=== PATIENT | female | born 1970 | race Caucasian/White ===

== ENCOUNTER 2020-12-23 14:18 | Inpatient (IN) | payer OTHER ==
[~2020-12-23] VITALS: Ht 165.1 cm; Wt 120.2 kg
[2020-12-23 15:20] LABS: HEMATOCRIT 38.4 % (31.2-41.9); MEAN CORPUSCULAR HEMOGLOBIN 27.8 uug (24.7-32.8); MEAN CORPUSCULAR VOLUME 85.8 fL (75.5-95.3); PLATELET COUNT (AUTO) 343 K/uL (179-408)
[2020-12-23 15:28] LABS: CREATININE 1.3 mg/dL (0.6-1.3); POTASSIUM 4.6 mmol/L (3.5-5.1)
[2020-12-23] MEDS ORDERED: HYDROMORPHONE 1 MG/1 ML DISP.SYRIN IM ONE ×2 (15:30→20:00)
[2020-12-23] MEDS ORDERED: ONDANSETRON ODT 4 MG TAB.RAPDIS ONE (15:44)
[2020-12-23] MEDS ORDERED: ONDANSETRON ODT 4 MG TAB.RAPDIS SL STA (16:10)
[2020-12-23] MEDS ORDERED: HYDROMORPHONE 1 MG/1 ML DISP.SYRIN ONE ×2 (16:11→20:19)
[2020-12-23] MEDS ORDERED: PRED20TA PO (16:34)
[2020-12-23] MEDS ORDERED: ALBU6.7H9 INH (16:35)
[2020-12-23] MEDS ORDERED: predniSONE 20 MG TABLET PO ONE (16:45)
[2020-12-23] MEDS ORDERED: predniSONE 50 MG TABLET ONE (16:48)
[2020-12-23] MEDS ORDERED: predniSONE 10 MG TABLET ONE (16:48)
[2020-12-23] MEDS ORDERED: IPRATROPIUM BROMIDE 0.5 MG/2.5 ML NEBU NEB ONE (17:00)
[2020-12-23] MEDS ORDERED: ALBUTEROL SULFATE 2.5 MG/3 ML NEBU NEB ONE (17:00)
[2020-12-23] MEDS ORDERED: ALBUTEROL SULFATE 2.5 MG/3 ML NEBU ONE (17:12)
[2020-12-23] MEDS ORDERED: IPRATROPIUM BROMIDE 0.5 MG/2.5 ML NEBU ONE (17:12)
[2020-12-23 17:30] LABS: ABG BASE EXCESS -2.8 mmol/L; ABG HCO3 23.3 mmol/L; ABG PCO2 45.6 mmHg (35.0-45.0); ABG PH 7.326 (7.350-7.450); ABG PO2 165.7 mmHg (75.0-100.0); ABG SITE RIGHT RADIAL; ABG TOTAL HEMOGLOBIN 12.8 G/dL (12.0-16.0); COHb 1.2 % (0.5-1.5); O2Hb 97.6 % (94.0-97.0)
[2020-12-23] MEDS ORDERED: Z GUARD REMEDY PASTE 57 GM TUBE TOP PRN (18:30)
[2020-12-23] MEDS ORDERED: ALBUTEROL SULFATE 2.5 MG/ 0.5 ML NEBU NEB PRN (18:30)
[2020-12-23] MEDS ORDERED: LINEZOLID IV 600 MG in PREMIXED 1 EACH IV SCH (18:30)
[2020-12-23] MEDS ORDERED: ONDANSETRON 4 MG/2 ML VIAL IV PRN (18:30)
[2020-12-23] MEDS ORDERED: MAGNESIUM HYDROXIDE 30 ML LIQUID UDC PO PRN (18:30)
--- NOTE | 2020-12-23 19:00 | NUR ---
Assumed care of patient from day shift nurse Bjorn. Patient came at the ER for wound check on right ankle area, cellulitis and SOB. Patient with Hx of Asthma. Patient pending admission to the unit. Addendum: 12/23/20 at 2020 by TATIANA NOTES DONE BY LIA TROTTER
[2020-12-23] MEDS ORDERED: MAGNESIUM SULFATE/D5W 200 ML ONE (19:34)
[2020-12-23] MEDS: MAGNESIUM SULFATE/D5W 100 ML IV SCH ×2 (19:34→21:10)
--- NOTE | 2020-12-23 20:00 | NUR ---
patient still complaining of pain on left ankle LE. Informed Dr. Cuellar.
[2020-12-23] MEDS ORDERED: HYDROMORPHONE 1 MG/1 ML DISP.SYRIN IV ONE (20:15)
--- NOTE | 2020-12-23 21:01 | NUR ---
2ND BAG OF MAGNESIUM GIVEN.
--- NOTE | 2020-12-23 21:14 | NUR ---
DR. CIFUENTES INTO VISIT.
--- NOTE | 2020-12-23 23:15 | NUR ---
Pt. admitted to Telemetry unit, room 305, under care of Dr. Justin. Belongs List completed
[2020-12-24 00:11] VITALS: BP 141/63
[2020-12-24] MEDS: HYDROCODONE/APAP 5-325MG TABLET PO PRN ×4 (00:45→18:43)
[2020-12-24] MEDS: methylPREDNISolone SOD SUCC 40 MG/ML VIAL IV SCH ×3 (00:59→12:56)
--- NOTE | 2020-12-24 01:56 | NUR ---
zyvox not given, unavailable from pharmacy;norco 5/325 given i tab prn for right lower extremity pain
--- NOTE | 2020-12-24 03:58 | NUR ---
slept at long intervals,need attended to, o2 at 2l via nasal cannula for sob ,
[2020-12-24 04:05] VITALS: BP 140/76
[2020-12-24 06:42] LABS: HEMATOCRIT 39.4 % (31.2-41.9); MEAN CORPUSCULAR HEMOGLOBIN 28.4 uug (24.7-32.8); MEAN CORPUSCULAR VOLUME 87.4 fL (75.5-95.3); PLATELET COUNT (AUTO) 290 K/uL (179-408)
--- NOTE | 2020-12-24 06:48 | NUR ---
resting in bed, afebrile,no sob noted at this time. endorsed to am shift.
[2020-12-24 06:58] LABS: CREATININE 1.4 mg/dL (0.6-1.3); MAGNESIUM 3.1 mg/dL (1.8-2.4); PHOSPHOROUS 4.7 mg/dL (2.5-4.9); POTASSIUM 5.7 mmol/L (3.5-5.1)
--- NOTE | 2020-12-24 08:00 | NUR ---
AWAKE ALERT AND ORIENTED X3 C/O ON AND OFF RIGHT LEG PAIN CONTINUE WITH PAIN MANAGEMENT. RA O2 100%. DENIES CHEST PAIN OR SOB. SR ON MONITOR
[2020-12-24] MEDS: LINEZOLID IV 600 MG in PREMIXED 1 EACH IV SCH ×2 (09:04→20:02)
--- NOTE | 2020-12-24 11:29 | NUR ---
WOUND CARE CONSULT: PT PRESENTS WITH DRY CRUSTED WOUND TO RT ANKLE, PRESENT ON ADMISSION. PT STATES THAT AREA IS VERY TENDER AND DRAINS SOMETIMES. DPM CONSULT CALLED TO DR HAMPAPUR. BLANCO IN AGREEMENT WITH PLAN OF CARE.
[2020-12-24 12:00] VITALS: BP 140/70
[2020-12-24] MEDS ORDERED: IPRATROPIUM BROMIDE 0.5 MG/2.5 ML NEBU NEB SCH (12:00)
[2020-12-24] MEDS ORDERED: ALBUTEROL SULFATE 2.5 MG/ 0.5 ML NEBU NEB SCH (12:00)
[2020-12-24] MEDS: ALBUTEROL SULFATE 2.5 MG/ 0.5 ML NEBU NEB SCH ×2 (13:40→19:50)
[2020-12-24] MEDS: IPRATROPIUM BROMIDE 0.5 MG/2.5 ML NEBU NEB SCH ×2 (13:40→19:50)
--- NOTE | 2020-12-24 14:08 | NUR ---
CONTINUE IV ZYVOX FOR CELLULITIS NO ALLERGY REACTION NOTED, MRSA SWAB SENT FOR STUDY
[2020-12-24 14:40] LABS: *BILIRUBIN,URIN NEGATIVE (NEGATIVE); *CLARITY,URINE SLIGHTLY CLOUDY (CLEAR); *COLOR,URINE LIGHT YELLOW (YELLOW); *KETONES,URINE NEGATIVE (NEGATIVE); *UROBILINOGEN,URINE 0.2 E.U./dl (NORMAL); LEUKOCYTE ESTERASE ,URINE 3+ (NEGATIVE); NITRITE, URINE POSITIVE (NEGATIVE); PH,URINE 5.5 (5.0-8.0); UGLUCOSE NEGATIVE (NEGATIVE)
[2020-12-24 14:46] LABS: *BLOOD, URINE TRACE (NEGATIVE)
[2020-12-24] MEDS ORDERED: SODIUM POLYSTYRENE SULFONATE 15 G/60 ML LIQUID UDC PO ONE (15:15)
[2020-12-24] MEDS ORDERED: IV NS 1000 ML 1,000 ML IV ONE (15:30)
[2020-12-24] MEDS ORDERED: ALBUTEROL SULFATE 2.5 MG/3 ML NEBU NEB PRN (15:30)
[2020-12-24] MEDS: NITROFURANTOIN/NITROFURAN MAC 100 MG CAPSULE PO SCH ×2 (15:52→20:02)
[2020-12-24 16:00] VITALS: BP 175/85
[2020-12-24 16:18] LABS: BACTERIA,URINE MANY /HPF (NONE SEEN); SQUAMOUS EPITHELIAL CELL,UR FEW /HPF (NONE SEEN); URINE AMORPHOUS URATE MANY /HPF; WBC,URINE 80-100 /HPF (0-3)
[2020-12-24] MEDS: methylPREDNISolone SOD SUCC 125 MG/2 ML VIAL IV SCH ×2 (17:02→23:17)
--- NOTE | 2020-12-24 19:30 | NUR ---
RECEIVED PT AWAKE, ALERT AND ORIENTEDX4. BOYFRIEND AT BEDSIDE. PT IN NO ACUTE DISTRESS. IV INTACT. SAFETY AND COMFORT PROVIDED. WILL CONTINUE TO MONITOR.
[2020-12-24 20:00] VITALS: BP 136/67
[2020-12-24] MEDS: ACETAMINOPHEN 325 MG TABLET PO PRN (20:58)
--- NOTE | 2020-12-24 20:58 | NUR ---
TYLENOL PRN 650 MG GIVEN FOR PT FOR PAIN. PT TOLERATED IT WELL. CALLED HAND SPRING REPAIRER REGARDING PT ASKING FOR MOTRIN. DR MORALES REPLIED THAT PT HAS PROBLEM WITH KIDNEY FUNCTION SO NEED TO HAVE TYLENOL FOR NOW AND WILL BE DISCUSS TOMORROW IF PT STILL STILL WANTS MOTRIN STILL.
[2020-12-25] MEDS: IPRATROPIUM BROMIDE 0.5 MG/2.5 ML NEBU NEB SCH ×4 (01:30→19:09)
[2020-12-25] MEDS: ALBUTEROL SULFATE 2.5 MG/ 0.5 ML NEBU NEB SCH ×4 (01:30→19:09)
--- NOTE | 2020-12-25 01:36 | NUR ---
Patient sleep, no tx given. RN aware. No resp distress noted.
[2020-12-25 04:20] VITALS: BP 141/69
[2020-12-25] MEDS: methylPREDNISolone SOD SUCC 125 MG/2 ML VIAL IV SCH ×4 (05:28→23:16)
[2020-12-25 05:59] LABS: HEMATOCRIT 39.8 % (31.2-41.9); MEAN CORPUSCULAR HEMOGLOBIN 28.2 uug (24.7-32.8); MEAN CORPUSCULAR VOLUME 87.8 fL (75.5-95.3); PLATELET COUNT (AUTO) 367 K/uL (179-408)
--- NOTE | 2020-12-25 05:59 | NUR ---
PT SLEPT INTERMITTENTLY. PT IN NO ACUTE DISTRESS. IV INTACT. PRESCRIBED MEDICATION GIVEN AND PT TOLERATED IT WELL.PT ON ROOM AIR. PT AFEBRILE AND VITAL SIGNS WNL. SAFETY AND COMFORT PROVIDED. ALL NEEDS ARE MET. WILL ENDORSE TO INCOMING NURSE FOR CONTINUITY OF CARE.
[2020-12-25 06:24] LABS: BILIRUBIN,TOTAL 0.2 mg/dL (0.2-1.0); CREATININE 1.5 mg/dL (0.6-1.3); MAGNESIUM 2.4 mg/dL (1.8-2.4); POTASSIUM 4.1 mmol/L (3.5-5.1); TOTAL PROTEIN, SERUM 7.5 g/dL (6.4-8.2)
[2020-12-25 06:28] LABS: URIC ACID 7.7 mg/dL (2.6-6.0)
[2020-12-25] MEDS: HYDROCODONE/APAP 5-325MG TABLET PO PRN ×2 (07:54→16:55)
[2020-12-25] MEDS: LINEZOLID IV 600 MG in PREMIXED 1 EACH IV SCH (07:55)
[2020-12-25] MEDS: NITROFURANTOIN/NITROFURAN MAC 100 MG CAPSULE PO SCH (07:55)
--- NOTE | 2020-12-25 08:00 | NUR ---
AWAKE ALERT AND ORIENTED X3 NO SS OF SOB EXCEPT FOR PAIN RIGHT LEG. PRN MEDS GIVEN ORDERED
[2020-12-25] MEDS ORDERED: DEXTROSE 50% 50 ML DISP.SYRIN IV PRN (09:00)
[2020-12-25] MEDS ORDERED: IV NS 1000 ML 1,000 ML IV ONE ×2 (09:00→10:00)
--- NOTE | 2020-12-25 11:00 | NUR ---
COLLATERAL SPECIALIST ON DUTY NOTIFIED OF HIGH BP WITH ORDER TO GIVE HYDRALAZINE. PATIENT DENIES STOVALL, DIZZINESS OR N/V. OBSERVED
[2020-12-25 11:28] VITALS: BP 181/93
[2020-12-25] MEDS: BLOOD SUGAR DIAGNOSTIC 1 EACH STRIP VI SCH ×3 (11:51→20:19)
[2020-12-25] MEDS: INSULIN REGULAR, HUMAN 300 UNIT/3 ML VIAL SQ PRN ×3 (11:52→20:27)
[2020-12-25] MEDS: hydrALAZINE HCL 20 MG/1 ML VIAL IV PRN ×2 (11:59→16:20)
[2020-12-25 14:11] LABS: LYMPHOCYTES % (MANUAL) 4 % (20-40); MONOCYTES % (MANUAL) 4 % (2-10); NEUTROPHILS % (MANUAL) 92 % (42-75)
--- NOTE | 2020-12-25 14:38 | NUR ---
SEEN BY DR MTZ FOR WOUND DEBRIDEMENT AT BEDSIDE. PATIENT TOLERATED WELL
[2020-12-25] MEDS: levoFLOXacin 250 MG TABLET PO SCH (15:22)
[2020-12-25] MEDS: AMLODIPINE 5 MG TABLET PO SCH (15:23)
[2020-12-25 15:24] VITALS: BP 188/91
--- NOTE | 2020-12-25 19:30 | NUR ---
RECEIVED PT AWAKE, ALERT AND ORIENTEDX4. PT IN NO ACUTE DISTRESS. IV INTACT. SAFETY AND COMFORT PROVIDED. WILL CONTINUE TO MONITOR.
[2020-12-25 20:00] VITALS: BP 174/85
[2020-12-25] MEDS: LORAZEPAM 2 MG/1 ML VIAL IV PRN (20:11)
[2020-12-25] MEDS: DOXYCYCLINE HYCLATE 100 MG TABLET PO SCH (20:11)
--- NOTE | 2020-12-25 20:11 | NUR ---
ATIVAN PRN GIVEN FOR PT FOR ANXIETY. PT IN NO ACUTE DISTRESS. WILL CONTINUE TO MONITOR.
[2020-12-25] MEDS: ACETAMINOPHEN 325 MG TABLET PO PRN (20:38)
[2020-12-25 22:30] VITALS: BP 152/90
[2020-12-26] MEDS: IPRATROPIUM BROMIDE 0.5 MG/2.5 ML NEBU NEB SCH ×4 (01:19→19:33)
[2020-12-26] MEDS: ALBUTEROL SULFATE 2.5 MG/ 0.5 ML NEBU NEB SCH ×4 (01:20→19:33)
[2020-12-26 04:33] VITALS: BP 153/98
--- NOTE | 2020-12-26 05:26 | NUR ---
PT SLEPT INTERMITTENTLY. PT IN NO ACUTE DISTRESS. PRESCRIBED MEDICATION GIVEN AND PT TOLERATED IT WELL. AT 2037H TYLENOL PRN GIVEN . SAFETY AND COMFORT PROVIDED. WILL ENDORSE TO INCOMING NURSE FOR CONTINUITY OF CARE.
[2020-12-26] MEDS: methylPREDNISolone SOD SUCC 125 MG/2 ML VIAL IV SCH ×2 (05:57→11:44)
[2020-12-26] MEDS: BLOOD SUGAR DIAGNOSTIC 1 EACH STRIP VI SCH ×4 (06:32→21:06)
[2020-12-26 06:36] LABS: HEMATOCRIT 38.3 % (31.2-41.9); MEAN CORPUSCULAR HEMOGLOBIN 28.1 uug (24.7-32.8); PLATELET COUNT (AUTO) 363 K/uL (179-408)
[2020-12-26 07:03] LABS: CREATININE 1.2 mg/dL (0.6-1.3); POTASSIUM 4.2 mmol/L (3.5-5.1)
[2020-12-26] MEDS: INSULIN REGULAR, HUMAN 300 UNIT/3 ML VIAL SQ PRN ×4 (08:14→21:08)
[2020-12-26] MEDS: HYDROCODONE/APAP 5-325MG TABLET PO PRN ×3 (08:18→20:55)
[2020-12-26] MEDS: AMLODIPINE 5 MG TABLET PO SCH (08:18)
[2020-12-26] MEDS: DOXYCYCLINE HYCLATE 100 MG TABLET PO SCH ×2 (08:18→20:56)
[2020-12-26] MEDS: THERAHONEY GEL 1.5 OZ TUBE TOP SCH (08:19)
[2020-12-26 11:48] VITALS: BP 146/85
[2020-12-26] MEDS: levoFLOXacin 250 MG TABLET PO SCH (14:04)
[2020-12-26] MEDS: LORAZEPAM 2 MG/1 ML VIAL IV PRN (15:50)
--- NOTE | 2020-12-26 20:55 | NUR ---
PAtient alert in no acute distress noted c/o Rt ankle pain . Medicated with Geyser with good effect.Rt ankle with dressing intact clean and dry. Patient on ATB therapy.Compliant with medication.
[2020-12-26 22:14] VITALS: BP 150/75
[2020-12-27] MEDS: IPRATROPIUM BROMIDE 0.5 MG/2.5 ML NEBU NEB SCH ×2 (01:04→07:49)
[2020-12-27] MEDS: ALBUTEROL SULFATE 2.5 MG/ 0.5 ML NEBU NEB SCH ×2 (01:05→07:49)
[2020-12-27 04:57] VITALS: BP 165/92
[2020-12-27 06:43] LABS: HEMATOCRIT 37.3 % (31.2-41.9); MEAN CORPUSCULAR HEMOGLOBIN 28.6 uug (24.7-32.8); MEAN CORPUSCULAR VOLUME 86.6 fL (75.5-95.3); PLATELET COUNT (AUTO) 328 K/uL (179-408)
[2020-12-27] MEDS: BLOOD SUGAR DIAGNOSTIC 1 EACH STRIP VI SCH ×2 (06:43→11:30)
[2020-12-27 06:53] LABS: CREATININE 1.4 mg/dL (0.6-1.3); POTASSIUM 3.8 mmol/L (3.5-5.1)
[2020-12-27] MEDS: DOXYCYCLINE HYCLATE 100 MG TABLET PO SCH (08:38)
[2020-12-27] MEDS: AMLODIPINE 5 MG TABLET PO SCH (08:38)
[2020-12-27 08:48] VITALS: BP 190/92
[2020-12-27] MEDS: hydrALAZINE HCL 20 MG/1 ML VIAL IV PRN (08:48)
[2020-12-27] MEDS: HYDROCODONE/APAP 5-325MG TABLET PO PRN (08:49)
[2020-12-27] MEDS: THERAHONEY GEL 1.5 OZ TUBE TOP SCH (09:00)
[2020-12-27] MEDS ORDERED: IV NS 1000 ML 1,000 ML IV ONE (10:15)
[2020-12-27] MEDS ORDERED: AMLO-212 PO (10:16)
[2020-12-27] MEDS ORDERED: LEVO250T59 PO (10:16)
[2020-12-27] MEDS ORDERED: DOXY100T2 PO (10:16)
--- NOTE | 2020-12-27 12:10 | NUR ---
Patient discharge to home, self care, refuse transportation assistance despite of encouragement and education. Patient IV access remove. no c/o of pain/discomfort prior discharge.
== END 2020-12-27 12:00 | disposition home or self-care (01) | DRG 383 ==
LOC: ER 14:18 → TELE3 22:31 → MEDSURG3 12-24 08:50
PROVIDERS: ADMIT Internal Medicine; ATTEND Nurse Practitioner Family
PROC: 0JBQ0ZZ Excision of Right Foot Subcutaneous Tissue and Fascia, Open Approach (ICD-10-PCS; principal; 2020-12-25)
DX: L03.115 Cellulitis of right lower limb (principal); J96.01 Acute respiratory failure with hypoxia; N17.0 Acute kidney failure with tubular necrosis; J44.1 Chronic obstructive pulmonary disease with (acute) exacerbation; J45.901 Unspecified asthma with (acute) exacerbation; S91.001A Unspecified open wound, right ankle, initial encounter; E87.2 Acidosis; N39.0 Urinary tract infection, site not specified; B96.20 Unspecified Escherichia coli [E. coli] as the cause of diseases classified elsewhere; E06.3 Autoimmune thyroiditis; E87.5 Hyperkalemia; F17.210 Nicotine dependence, cigarettes, uncomplicated; G47.33 Obstructive sleep apnea (adult) (pediatric); I12.9 Hypertensive chronic kidney disease with stage 1 through stage 4 chronic kidney disease, or unspecified chronic kidney disease; N18.9 Chronic kidney disease, unspecified; Z20.822 Contact with and (suspected) exposure to COVID-19; M10.9 Gout, unspecified; Z88.0 Allergy status to penicillin; Z88.2 Allergy status to sulfonamides; S91.101A Unspecified open wound of right great toe without damage to nail, initial encounter; X58.XXXA Exposure to other specified factors, initial encounter; Y93.9 Activity, unspecified; Y92.009 Unspecified place in unspecified non-institutional (private) residence as the place of occurrence of the external cause; Z87.440 Personal history of urinary (tract) infections; Z88.1 Allergy status to other antibiotic agents; E66.01 Morbid (severe) obesity due to excess calories; Z68.41 Body mass index [BMI] 40.0-44.9, adult; R73.03 Prediabetes; W57.XXXA Bitten or stung by nonvenomous insect and other nonvenomous arthropods, initial encounter; D72.828 Other elevated white blood cell count
CPT/HCPCS: 36415; 36600; 70030-TC; 71045; 73610; 83605; 83735; 84100; 84550; 85025; 85651; 86803; 87040; 87077; 87086; 87806; 93005; 94640; 94664; A6209; G0378; J0360; J1170; J1815; J2020; J2060; J2920; J2930; J3475; J3490; J3590; J7030; J7050; J7512; Q0162

== ENCOUNTER 2021-07-04 17:31 | Inpatient (IN) | payer OTHER ==
[~2021-07-04] VITALS: Ht 165.1 cm; Wt 123.4 kg
[~2021-07-04 17:31] MED LIST: ALBU6.7H9 INH; AMLO-212 PO; DOXY100T2 PO; LEVO250T59 PO
[2021-07-04] MEDS ORDERED: LINEZOLID IV 600 MG in PREMIXED 1 EACH IV SCH (18:00)
[2021-07-04] MEDS ORDERED: LINEZOLID IV 600 MG in PREMIXED 1 EACH IV ONE (18:00)
[2021-07-04] MEDS ORDERED: IV NORMAL SALINE 500 ML BAG IV ONE (18:00)
[2021-07-04] MEDS ORDERED: PIPERACILLIN SODIUM/TAZOBACTAM 3.375 G in IV DEXTROSE 5% 50 ML IV ONE ×4 (18:00)
--- NOTE | 2021-07-04 18:04 | NUR ---
1st contact with patient: Fallon, PIMENTEL, morbidly obese, [email or web address], follows commands. Her IV fluids are infusing@[email or web address] [email or web address] angiocatheter (positional), still for urine specimen, COVID swab, CT scans and possible CCU admission.
[2021-07-04 18:11] LABS: HEMATOCRIT 39.1 % (31.2-41.9); MEAN CORPUSCULAR HEMOGLOBIN 26.2 uug (24.7-32.8); MEAN CORPUSCULAR VOLUME 80.5 fL (75.5-95.3); PLATELET COUNT (AUTO) 218 K/uL (179-408)
[2021-07-04 18:20] LABS: CARBON DIOXIDE 27 mmol/L (21-32); CHLORIDE 97 mmol/L (98-107); CREATININE 1.5 mg/dL (0.6-1.3); GLUCOSE 129 mg/dL (74-106); POTASSIUM 4.4 mmol/L (3.5-5.1); UREA NITROGEN, BLOOD 19 mg/dL (7-18)
[2021-07-04] MEDS ORDERED: MUPI22OI2 (18:26)
[2021-07-04] MEDS ORDERED: FURO40TA5 PO (18:26)
[2021-07-04] MEDS ORDERED: MINO2.5T PO (18:26)
[2021-07-04] MEDS ORDERED: MONT10TA33 PO (18:26)
[2021-07-04] MEDS ORDERED: KETOCONAZOLE 2% TP (18:26)
[2021-07-04] MEDS ORDERED: IBUP-1957 PO (18:26)
[2021-07-04] MEDS ORDERED: ALLO300T2 PO (18:26)
[2021-07-04] MEDS ORDERED: DIPH50CA38 PO (18:26)
[2021-07-04] MEDS ORDERED: FLUT1DIS29 IH (18:26)
[2021-07-04] MEDS ORDERED: NITR50CA PO (18:26)
[2021-07-04] MEDS ORDERED: MV-M1TAB18 PO (18:26)
[2021-07-04] MEDS ORDERED: CLID1CAP PO (18:26)
[2021-07-04] MEDS ORDERED: MICONAZOLE 2% TP (18:26)
[2021-07-04] MEDS ORDERED: ESCI20TA44 PO (18:26)
[2021-07-04 18:33] LABS: ALANINE AMINOTRANSFERASE 111 U/L (14-59); ALKALINE PHOSPHATASE 154 U/L (50-136); ASPARTATE AMINOTRANSFERASE 104 U/L (15-37); BILIRUBIN,TOTAL 1.3 mg/dL (0.2-1.0); TOTAL PROTEIN, SERUM 7.6 g/dL (6.4-8.2)
[2021-07-04] MEDS ORDERED: IOHEXOL 300MG/ML 100 ML INFUS..BTL ONE (18:33)
[2021-07-04] MEDS ORDERED: SWABABLE VALVE TRANSFER SET EA MC ONE (18:34)
[2021-07-04 18:39] LABS: ABG BASE EXCESS 0.7 mmol/L; ABG HCO3 23.9 mmol/L; ABG PCO2 33.9 mmHg (35.0-45.0); ABG PH 7.466 (7.350-7.450); ABG PO2 53.9 mmHg (75.0-100.0); ABG SITE LEFT RADIAL; ABG TOTAL HEMOGLOBIN 13.1 G/dL (12.0-16.0); COHb 0.8 % (0.5-1.5); MetHb 0.3 % (0.0-1.5); O2Hb 88.9 % (94.0-97.0); VENT MODE ROOM AIR
--- NOTE | 2021-07-04 18:59 | NUR ---
Nursing SBAR given to LIA Fischer. Patient needs urine sample to be collected from hinton catheter, still CT scan contrast administration consent, & actual CT scan, for IV fluids boluses END times, 1st IV antibiotic END time and Zosyn IV to follow. Patient may go to CCU for sepsis per Dr Borges, pending acceptance from [facility] hospitalist GABE Hopson.
--- NOTE | 2021-07-04 19:25 | NUR ---
PATIENT SEEN AND VISITED BY CONSULTING PROJECT DIRECTOR CAROL MERRILL ,SPOKED WITH PATIENT AND DISCUSSED PLAN OF CARE AND TREATMENT .
--- NOTE | 2021-07-04 19:32 | NUR ---
SBAR to CCU nurse Lien. GABE Hopson is here. Patient still needs CT scans@this time.
[2021-07-04] MEDS ORDERED: MAGNESIUM HYDROXIDE 30 ML LIQUID UDC PO PRN (19:45)
[2021-07-04] MEDS ORDERED: REMEDY ESSENTIAL ZINC PASTE 113 GM TP PRN (19:45)
[2021-07-04] MEDS ORDERED: IPRATROPIUM BROMIDE 0.5 MG/2.5 ML NEBU NEB SCH (19:45)
[2021-07-04] MEDS ORDERED: ALBUTEROL SULFATE 2.5 MG/3 ML NEBU NEB SCH (19:45)
[2021-07-04] MEDS ORDERED: ONDANSETRON 4 MG/2 ML VIAL IV PRN (19:45)
--- NOTE | 2021-07-04 19:48 | NUR ---
PT BEIN TAKEN DOWN FOR CT.
[2021-07-04] MEDS ORDERED: PIPERACILLIN/TAZOBACTAM/D5W 50 ML IV ONE (19:50)
--- NOTE | 2021-07-04 19:55 | NUR ---
PATIENT WENT TO CT VIA [facility] FOR CT OF THE ADBOMEN +PELVIS.
--- NOTE | 2021-07-04 20:10 | NUR ---
PT RETURNED FROM CT.
[2021-07-04 20:19] VITALS: BP 158/82
[2021-07-04] MEDS: ACETAMINOPHEN 325 MG TABLET PO PRN (20:19)
--- NOTE | 2021-07-04 20:19 | NUR ---
GIVEN TYLENOL PRN PO C/O TEMP 103.1 ORALLY.TOLERATED MEDICATION WITH WATER , HOB UP ASPIRATION PRECAUTION OBSERVED.
[2021-07-04 20:45] LABS: *BILIRUBIN,URIN NEGATIVE (NEGATIVE); *CLARITY,URINE CLEAR (CLEAR); *COLOR,URINE YELLOW (YELLOW); *KETONES,URINE NEGATIVE (NEGATIVE); LEUKOCYTE ESTERASE ,URINE NEGATIVE (NEGATIVE); NITRITE, URINE NEGATIVE (NEGATIVE); UGLUCOSE NEGATIVE (NEGATIVE)
[2021-07-04 20:46] LABS: *BLOOD, URINE TRACE (NEGATIVE)
[2021-07-04 20:55] LABS: BACTERIA,URINE NONE SEEN /HPF (NONE SEEN); SQUAMOUS EPITHELIAL CELL,UR FEW /HPF (NONE SEEN); WBC,URINE 0-3 /HPF (0-3)
[2021-07-04] MEDS ORDERED: CHLORDIAZEPOXIDE PO SCH (21:00)
[2021-07-04] MEDS ORDERED: CLIDINIUM BR PO SCH (21:00)
[2021-07-04] MEDS ORDERED: [UNRECOGNIZED DRUG - OTHER] PO SCH (21:00)
--- NOTE | 2021-07-04 21:00 | NUR ---
RESPIRATORY THERAPIST AT B/S PLACED PATIENT ON BIPAP IPAP 10 ,EPAP 5,RATE 14 FIO2 36% .
--- NOTE | 2021-07-04 22:30 | NUR ---
PATIENT ASKED FOR WATER ,GIVEN ICE WATER TOLERATED ASSISTED ,BACK TO BIPAP .
[2021-07-04] MEDS: methylPREDNISolone SOD SUCC 40 MG/ML VIAL IV SCH (22:51)
[2021-07-04 23:00] VITALS: BP 115/70
--- NOTE | 2021-07-04 23:00 | NUR ---
RECHECKED TEMP 98.2 F AFEBRILE , DONE AXILLARY , TOLERATING BIPAP RR 20 SATURATION 99%. BREATHING SLOWS DONE AND LESS TACHYPNEIC . SLEEPING IN BED .
--- NOTE | 2021-07-04 23:05 | NUR ---
PICCLINE NURSE SIVAN AT B/S.PLACED RIGHT AC NO .18 MIDLINE . ATTEMPTED X1
[2021-07-04] MEDS ORDERED: TOBRAMYCIN SULFATE IV ONE (23:30)
[2021-07-04] MEDS ORDERED: DEXTROSE 5% IV ONE (23:30)
[2021-07-05] VITALS (25 sets, daily range): BP systolic 95–133; BP diastolic 45–89
--- NOTE | 2021-07-05 | NUR ---
PT DISCHARGE FROM ER AND ADMITTED ICU PATIENT AND OVERTURNED TO ICU CHARTING TO NURSE DESTINEY FITZGERALD.
[2021-07-05] MEDS ORDERED: IPRATROPIUM BROMIDE 0.5 MG/2.5 ML NEBU ONE ×4 (01:12→19:06)
[2021-07-05] MEDS ORDERED: ALBUTEROL SULFATE 2.5 MG/3 ML NEBU ONE ×3 (01:12→13:22)
[2021-07-05] MEDS: IPRATROPIUM BROMIDE 0.5 MG/2.5 ML NEBU NEB SCH ×4 (01:15→19:10)
[2021-07-05] MEDS ORDERED: ALBUTEROL SULFATE 2.5 MG/3 ML NEBU NEB SCH (01:30)
[2021-07-05] MEDS: ALBUTEROL SULFATE 2.5 MG/3 ML NEBU NEB SCH ×4 (01:47→19:10)
--- NOTE | 2021-07-05 02:42 | NUR ---
SPOKED WITH SALES SUPPORT COORDINATOR AGUSTÍN ANTIBIOTIC NO SUPPLY HAVE TO WAIT FOR PHARMACY IN AM .
[2021-07-05 05:23] LABS: HEMATOCRIT 37.4 % (31.2-41.9); MEAN CORPUSCULAR HEMOGLOBIN 26.3 uug (24.7-32.8); PLATELET COUNT (AUTO) 199 K/uL (179-408)
[2021-07-05 05:31] LABS: CREATININE 1.6 mg/dL (0.6-1.3); MAGNESIUM 1.9 mg/dL (1.8-2.4); PHOSPHOROUS 4.8 mg/dL (2.5-4.9); POTASSIUM 3.9 mmol/L (3.5-5.1)
[2021-07-05 06:12] LABS: ABG BASE EXCESS -3.9 mmol/L; ABG HCO3 20.9 mmol/L; ABG PCO2 37.1 mmHg (35.0-45.0); ABG PH 7.368 (7.350-7.450); ABG PO2 158.2 mmHg (75.0-100.0); ABG SITE RIGHT RADIAL; ABG TOTAL HEMOGLOBIN 12.9 G/dL (12.0-16.0); COHb 0.6 % (0.5-1.5); CPAP,BG 10 cmH20; MetHb 0.1 % (0.0-1.5); O2Hb 98.3 % (94.0-97.0); VENT MODE BIPAP
[2021-07-05] MEDS ORDERED: methylPREDNISolone SOD SUCC 40 MG/ML VIAL ONE ×3 (06:42→20:10)
[2021-07-05] MEDS: methylPREDNISolone SOD SUCC 40 MG/ML VIAL IV SCH ×3 (06:43→21:13)
[2021-07-05] MEDS ORDERED: PANTOPRAZOLE SODIUM 40 MG VIAL ONE (08:37)
[2021-07-05] MEDS ORDERED: CHOLECALCIFEROL 1,000 UNIT TABLET ONE (08:37)
[2021-07-05] MEDS ORDERED: AMLODIPINE 5 MG TABLET ONE (08:38)
[2021-07-05] MEDS ORDERED: ALLOPURINOL 100 MG TABLET ONE (08:38)
[2021-07-05] MEDS: CHOLECALCIFEROL 1,000 UNIT TABLET PO SCH (08:41)
[2021-07-05] MEDS: PANTOPRAZOLE SODIUM 40 MG VIAL IV SCH (08:41)
[2021-07-05] MEDS: AMLODIPINE 5 MG TABLET PO SCH (08:42)
[2021-07-05] MEDS: ALLOPURINOL 300 MG TABLET PO SCH (08:42)
[2021-07-05] MEDS ORDERED: ESCITALOPRAM OXALATE 10 MG TABLET PO SCH ×2 (09:00)
[2021-07-05] MEDS ORDERED: MONTELUKAST SODIUM 10 MG TABLET PO SCH (09:00)
[2021-07-05] MEDS ORDERED: MUPIROCIN 2% OINT 22 GM TUBE TP SCH ×2 (09:00)
[2021-07-05] MEDS ORDERED: DEXTROSE 50% 50 ML DISP.SYRIN IV PRN (09:15)
[2021-07-05] MEDS: LINEZOLID IV 600 MG in PREMIXED 1 EACH IV SCH ×2 (09:15→21:11)
[2021-07-05] MEDS ORDERED: TOBRAMYCIN SULFATE 160 MG in IV DEXTROSE 5% 100 ML IV SCH (10:00)
[2021-07-05] MEDS: BLOOD SUGAR DIAGNOSTIC 1 EACH STRIP VI SCH ×3 (12:22→20:50)
[2021-07-05 13:05] LABS: THYROID STIMULATING HORMONE 0.176 mIU/mL (0.358-3.740)
--- NOTE | 2021-07-05 13:09 | NUR ---
Patient asked if she had been using any methamphetamines, and patient stated that she smoked it recently and not to tell her mother.
[2021-07-05 13:24] LABS: *AMPHETAMINE, URINE POSITIVE (NEGATIVE); *CANNABINOID, URINE NEGATIVE (NEGATIVE); *COCCAINE, URINE NEGATIVE (NEGATIVE); *OPIATE, URINE NEGATIVE (NEGATIVE); *PHENCYCLIDINE SCREEN,URINE NEGATIVE (NEGATIVE)
[2021-07-05 13:44] LABS: CREATINE KINASE, TOTAL 290 U/L (26-192)
[2021-07-05] MEDS ORDERED: ATOR20TA PO (15:01)
[2021-07-05] MEDS ORDERED: METF-440 PO (15:02)
[2021-07-05] MEDS: INSULIN REGULAR, HUMAN 300 UNIT/3 ML VIAL SQ PRN ×2 (16:44→20:22)
[2021-07-05] MEDS ORDERED: MONTELUKAST SODIUM 10 MG TABLET ONE (18:24)
[2021-07-05] MEDS: MONTELUKAST SODIUM 10 MG TABLET PO SCH (18:30)
--- NOTE | 2021-07-05 18:43 | NUR ---
Patient is awake and alert x4, saturation 97% on 3L NC. Patient is occasionally dyspneic without desaturation, afebrile, sinus rhythm and hemodynamically stable. Patient tolerating meals and frequently asking for snacks. Patient made aware that she is on insulin/ and on a cardiac diet. Patient should reduce the amount of salt and carbohydrate intake. Patient able to make her needs known.
[2021-07-05] MEDS ORDERED: levoFLOXacin 500 MG/D5W 500 MG in PREMIXED 1 EACH IV SCH (18:45)
[2021-07-05] MEDS ORDERED: ALBUTEROL SULFATE 2.5 MG/ 0.5 ML NEBU ONE (19:07)
--- NOTE | 2021-07-05 19:45 | NUR ---
ROUNDS MADE PATIENT IN BED AAOX3,WATCHING TV. ON O2 NASAL CANNULA AT 3 L/MIN SATURATION 100% RR 20. AFEBRILE CHECKED TEMPERATURE 98.7F, AXILLARY PER PATIENT SHE WANT SOMETHING TO EAT . PROVIDED A DINNER TRAY HELP WITH SET UPS ,HOB UP PATIENT ABLE TO FEED SELF.
--- NOTE | 2021-07-05 20:00 | NUR ---
PATIENT IN BED EATING DINNER .
[2021-07-05] MEDS ORDERED: LINEZOLID 600 MG/300 ML PIGGYBACK IV ONE (20:10)
[2021-07-05] MEDS ORDERED: levoFLOXacin 750MG/D5W 150 ML IV ONE (20:11)
[2021-07-05] MEDS: levoFLOXacin 750MG/D5W 150 ML IV SCH (20:12)
--- NOTE | 2021-07-05 20:26 | NUR ---
FINGERSTICK DONE AND FOLLOW ISS -FS 267 GIVEN 9 UNITS OF REGULAR INSULIN .
--- NOTE | 2021-07-05 22:00 | NUR ---
PATIENT KEEP ON ASKING IF HER FRIEND CAN COME AND VISIT HER . INFORMED PATIENTS ITS LATE AT NIGHT AND ITS ALREADY 2200 PM. PATIENT VERBALIZED SEE NEEDS SOMETHING TO RELAX HER AND HELP HER SLEEP . INFORMED PATIENT RN WILL CHECKED ON HER MEDICATION LIST IF SHE HAS MED TO HELP HER SLEEP ..
--- NOTE | 2021-07-05 22:00 | NUR ---
CHANGED SOILED LINENS AND GOWN PATIENT VERBALIZED SHES SWEATING . CHECKED TEMP 97.8 AXILLARY . WITH ANOTHER RN , PULL PATIENT HIGHER IN BED . WARM BLANKET PROVIDED .
[2021-07-05] MEDS ORDERED: LORAZEPAM 2 MG/1 ML VIAL ONE (22:15)
[2021-07-05] MEDS: LORAZEPAM 2 MG/1 ML VIAL IV PRN (22:16)
--- NOTE | 2021-07-05 23:47 | NUR ---
PATIENT CALLED AND WANTS TO DO NO .1 INFORMED PATIENT HAS A ALLISON CATHETER AND SHE CAN GO AHEAD AND PEE . TEACHING DONE . ASKED FOR COOLED WATER TO DRINK TOLERATED 1 CUP OF ICE COLD WATER .
[2021-07-06] VITALS (16 sets, daily range): BP systolic 100–147; BP diastolic 59–87
[2021-07-06] MEDS ORDERED: IPRATROPIUM BROMIDE 0.5 MG/2.5 ML NEBU ONE ×3 (00:48→13:32)
[2021-07-06] MEDS ORDERED: ALBUTEROL SULFATE 2.5 MG/ 0.5 ML NEBU ONE (00:48)
[2021-07-06] MEDS: IPRATROPIUM BROMIDE 0.5 MG/2.5 ML NEBU NEB SCH ×4 (00:50→19:20)
[2021-07-06] MEDS: ALBUTEROL SULFATE 2.5 MG/3 ML NEBU NEB SCH ×4 (00:50→19:20)
--- NOTE | 2021-07-06 03:34 | NUR ---
PATIENT IN BED AWAKE ASKED FOR WATER GIVEN . AM CARE DONE ,BATH PATIENT,PATIENT ABLE TO HELP IN TURING AND REPOSITIONING. CHANGED SOILED LINENS AND GOWN ,ALLISON CARE DONE .
--- NOTE | 2021-07-06 03:44 | NUR ---
DISC PAD PLATE FILLER AT B/S FOR PORTABLE CHEST XRAY /
[2021-07-06 05:04] LABS: HEMATOCRIT 34.4 % (31.2-41.9); MEAN CORPUSCULAR HEMOGLOBIN 25.8 uug (24.7-32.8); MEAN CORPUSCULAR VOLUME 79.6 fL (75.5-95.3); PLATELET COUNT (AUTO) 205 K/uL (179-408)
[2021-07-06 05:21] LABS: BILIRUBIN,DIRECT 0.1 mg/dL (0.0-0.2); BILIRUBIN,TOTAL 0.4 mg/dL (0.2-1.0); CREATININE 1.6 mg/dL (0.6-1.3); MAGNESIUM 2.3 mg/dL (1.8-2.4); PHOSPHOROUS 3.4 mg/dL (2.5-4.9); POTASSIUM 4.1 mmol/L (3.5-5.1); TOTAL PROTEIN, SERUM 7.1 g/dL (6.4-8.2)
[2021-07-06 05:29] LABS: THYROID STIMULATING HORMONE 0.106 mIU/mL (0.358-3.740)
[2021-07-06] MEDS ORDERED: methylPREDNISolone SOD SUCC 40 MG/ML VIAL ONE (06:11)
[2021-07-06] MEDS: methylPREDNISolone SOD SUCC 40 MG/ML VIAL IV SCH ×3 (06:16→21:55)
--- NOTE | 2021-07-06 06:33 | NUR ---
FINGERSTICK DONE BLOOD SUGAR 170 MG/DL.
[2021-07-06] MEDS: BLOOD SUGAR DIAGNOSTIC 1 EACH STRIP VI SCH ×4 (07:00→20:25)
[2021-07-06] MEDS ORDERED: ALBUTEROL SULFATE 2.5 MG/3 ML NEBU ONE ×2 (07:30→13:32)
[2021-07-06] MEDS: INSULIN REGULAR, HUMAN 300 UNIT/3 ML VIAL SQ PRN ×3 (07:35→16:31)
[2021-07-06] MEDS ORDERED: ALLOPURINOL 100 MG TABLET ONE (08:08)
[2021-07-06] MEDS ORDERED: CHOLECALCIFEROL 1,000 UNIT TABLET ONE (08:08)
[2021-07-06] MEDS ORDERED: PANTOPRAZOLE SODIUM 40 MG VIAL ONE (08:08)
[2021-07-06] MEDS ORDERED: AMLODIPINE 5 MG TABLET ONE (08:09)
[2021-07-06] MEDS: PANTOPRAZOLE SODIUM 40 MG VIAL IV SCH (08:11)
[2021-07-06] MEDS: ALLOPURINOL 300 MG TABLET PO SCH (08:12)
[2021-07-06] MEDS: AMLODIPINE 5 MG TABLET PO SCH (08:12)
[2021-07-06] MEDS: CHOLECALCIFEROL 1,000 UNIT TABLET PO SCH (08:12)
[2021-07-06] MEDS: LINEZOLID IV 600 MG in PREMIXED 1 EACH IV SCH ×2 (08:13→20:12)
[2021-07-06] MEDS: NICOTINE 14 MG/24HR PATCH TD SCH (11:27)
[2021-07-06] MEDS: APIXABAN 5 MG TABLET PO SCH ×2 (11:28→20:12)
--- NOTE | 2021-07-06 14:45 | NUR ---
Report given to Bettye FITZGERALD. Patient alert and oriented x4. Sinus rhythm on the monitor. Hemodynamically stable, afebrile and in no distress at this time. Bed in low position, side rails upx2.
[2021-07-06] MEDS: MONTELUKAST SODIUM 10 MG TABLET PO SCH (16:29)
--- NOTE | 2021-07-06 19:00 | NUR ---
Received pt awake, alert and orientedx4.Iv intact. Pt on 1L nasal cannula. Pt in no acute distress. Safety and comfort provided. Will continue to monitor.
[2021-07-06] MEDS: LORAZEPAM 2 MG/1 ML VIAL IV PRN (20:13)
[2021-07-06] MEDS: INSULIN REGULAR, HUMAN 300 UNITS/3 ML VIAL SQ PRN (20:28)
[2021-07-06] MEDS: ACETAMINOPHEN 325 MG TABLET PO PRN (20:46)
--- NOTE | 2021-07-06 22:00 | NUR ---
at 2012H Ativan 2mg prn given for pt for anxiety. Pt tolerated it well. After an hour pt calmer and sleeping. PT given Tylenol 650mg at 2045H for pain. Pt tolerated it well. After an hour Tylenol prn effective as per pt is sleeping. Will continue to monitor.
[2021-07-07] VITALS (7 sets, daily range): BP systolic 104–160; BP diastolic 60–86
[2021-07-07] MEDS: IPRATROPIUM BROMIDE 0.5 MG/2.5 ML NEBU NEB SCH ×4 (01:11→19:32)
[2021-07-07] MEDS: ALBUTEROL SULFATE 2.5 MG/3 ML NEBU NEB SCH ×4 (01:11→19:32)
[2021-07-07] MEDS: LORAZEPAM 2 MG/1 ML VIAL IV PRN ×3 (04:20→21:21)
--- NOTE | 2021-07-07 04:51 | NUR ---
At 0420h Ativan 2mg prn given to pt for anxiety . Pt tolerated it well. Will continue to monitor.
[2021-07-07] MEDS: methylPREDNISolone SOD SUCC 40 MG/ML VIAL IV SCH ×3 (06:02→21:02)
--- NOTE | 2021-07-07 06:07 | NUR ---
Pt slept intermittently. Pt in no acute distress. Iv intact. Pt on sinus rhythm. Pt on 1L nasal cannula. Pt turned and repositioned. Prescribed medication given and pt tolerated it well. Safety and comfort provided. Vital signs wnl. Will endorse to incoming nurse.
[2021-07-07] MEDS: BLOOD SUGAR DIAGNOSTIC 1 EACH STRIP VI SCH ×4 (06:32→20:26)
[2021-07-07 07:19] LABS: CREATININE 1.7 mg/dL (0.6-1.3); POTASSIUM 3.9 mmol/L (3.5-5.1)
[2021-07-07 07:21] LABS: HEMATOCRIT 32.5 % (31.2-41.9); MEAN CORPUSCULAR HEMOGLOBIN 26.3 uug (24.7-32.8); MEAN CORPUSCULAR VOLUME 78.3 fL (75.5-95.3); PLATELET COUNT (AUTO) 223 K/uL (179-408)
[2021-07-07] MEDS: CHOLECALCIFEROL 1,000 UNIT TABLET PO SCH (08:29)
[2021-07-07] MEDS: PANTOPRAZOLE SODIUM 40 MG VIAL IV SCH (08:29)
[2021-07-07] MEDS: NICOTINE 14 MG/24HR PATCH TD SCH (08:29)
[2021-07-07] MEDS: AMLODIPINE 5 MG TABLET PO SCH (08:29)
[2021-07-07] MEDS: ALLOPURINOL 300 MG TABLET PO SCH (08:29)
[2021-07-07] MEDS: APIXABAN 5 MG TABLET PO SCH ×2 (08:30→20:23)
[2021-07-07] MEDS: INSULIN REGULAR, HUMAN 300 UNIT/3 ML VIAL SQ PRN ×3 (08:31→16:39)
[2021-07-07] MEDS: LINEZOLID IV 600 MG in PREMIXED 1 EACH IV SCH ×2 (09:03→20:22)
--- NOTE | 2021-07-07 10:00 | NUR ---
Harrison form the CT scan stated the procedure is canceled. The mother also called and stated she was informed by the CT. No other concern identified. will continue to monitor.
--- NOTE | 2021-07-07 10:20 | NUR ---
PRN Ativan given per patient request. Will continue to monitor.
[2021-07-07] MEDS: MAGNESIUM HYDROXIDE 30 ML LIQUID UDC PO SCH (11:33)
--- NOTE | 2021-07-07 13:59 | NUR ---
WOUND CARE CONSULT: PT PRESENTS WITH RT LATERAL ANKLE ULCER, PRESENT ON ADMISSION. DR MTZ NOTIFIED OF DPM CONSULT REQUEST. IN AGREEMENT WITH PLAN OF CARE.
[2021-07-07] MEDS: MONTELUKAST SODIUM 10 MG TABLET PO SCH (17:13)
--- NOTE | 2021-07-07 18:58 | NUR ---
Patient remained stable during the shift. all needs attended. due meds given. prn Ativan given as ordered, no concerns identified. Informed Dr Null and Mark Anthony, GAME WARDEN to update the mother per request, confirmed. Wound care consult was done, ST for swallow eval was done. Safety measures maintained at all times. will endorse to the next shift for continuity of care.
--- NOTE | 2021-07-07 19:30 | NUR ---
Received pt awake, alert and orientedx4. Pt in no acute distress. Pt on 1l nasal cannula. Pt on sinus rhythm. Safety and comfort provided. Will continue to monitor.
[2021-07-07] MEDS: levoFLOXacin 750MG/D5W 150 ML IV SCH (20:05)
[2021-07-07] MEDS ORDERED: MIRALAX 17 GM POWD.PACK PO PRN (21:00)
[2021-07-07] MEDS: INSULIN REGULAR, HUMAN 300 UNITS/3 ML VIAL SQ PRN (21:03)
--- NOTE | 2021-07-07 23:00 | NUR ---
At 2121h Ativan 2mg prn given to pt for anxiety . Pt tolerated it well. After an hour medication effective as per pt stated it help her and make her sleep. Will continue to monitor.
[2021-07-08 00:36] VITALS: BP 136/77
[2021-07-08] MEDS: IPRATROPIUM BROMIDE 0.5 MG/2.5 ML NEBU NEB SCH ×4 (00:56→19:30)
[2021-07-08] MEDS: ALBUTEROL SULFATE 2.5 MG/3 ML NEBU NEB SCH ×4 (00:56→19:30)
[2021-07-08] MEDS: ACETAMINOPHEN 325 MG TABLET PO PRN ×2 (01:00→20:15)
--- NOTE | 2021-07-08 01:00 | NUR ---
Tylenol 650 mg prn given to pt as per pt request. Pt stated she has generalized pain and it might help her sleep. Will continue to monitor.
[2021-07-08 04:10] VITALS: BP 131/66
[2021-07-08] MEDS: methylPREDNISolone SOD SUCC 40 MG/ML VIAL IV SCH (05:05)
[2021-07-08] MEDS: LORAZEPAM 2 MG/1 ML VIAL IV PRN ×3 (05:05→22:56)
--- NOTE | 2021-07-08 05:27 | NUR ---
at 0505H Ativan 2mg prn given to pt for restlessness. Pt tolerated it well. Pt vital signs within normal limit. Will continue to monitor.
--- NOTE | 2021-07-08 06:00 | NUR ---
lab called and reported pt blood culture is positive for gram + cocci.
[2021-07-08] MEDS: PANTOPRAZOLE SODIUM 40 MG TABLET.DR PO SCH (06:11)
--- NOTE | 2021-07-08 06:21 | NUR ---
Pt slept intermittently. Pt in no acute distress. Pt on sinus rhythm. Pt turned and repositioned. Dressing changed. Prescribed medication given and pt tolerated it well. Pt hinton catheter intact and draining well. Vital signs within normal limit. Safety and comfort provided. Will endorse to incoming nurse for continuity of care.
[2021-07-08] MEDS: BLOOD SUGAR DIAGNOSTIC 1 EACH STRIP VI SCH ×4 (06:33→21:13)
[2021-07-08 06:58] LABS: MEAN CORPUSCULAR HEMOGLOBIN 25.7 uug (24.7-32.8); MEAN CORPUSCULAR VOLUME 78.7 fL (75.5-95.3); PLATELET COUNT (AUTO) 257 K/uL (179-408)
[2021-07-08 07:06] LABS: *IMMUNOGLOBULIN G, SERUM 1161 mg/dL (586-1602); IMMUNOGLOBULIN A, SERUM 358 mg/dL (87-352); IMMUNOGLOBULIN M, SERUM 60 mg/dL (26-217)
[2021-07-08 07:13] LABS: CREATININE 1.5 mg/dL (0.6-1.3); POTASSIUM 4.2 mmol/L (3.5-5.1)
--- NOTE | 2021-07-08 08:00 | NUR ---
RECEIVED PATIENT IN BED RESTING COMFORTABLY WITH 02 1L VIA NC SATURATING 96-98%, SLIGHT SOB ON EXERTION, DENIES PAIN. SR/ST ON MONITOR. CONTINUE PLAN OF CARE
[2021-07-08] MEDS: CHOLECALCIFEROL 1,000 UNIT TABLET PO SCH (09:18)
[2021-07-08] MEDS: LINEZOLID IV 600 MG in PREMIXED 1 EACH IV SCH (09:18)
[2021-07-08] MEDS: ALLOPURINOL 300 MG TABLET PO SCH (09:18)
[2021-07-08] MEDS: APIXABAN 5 MG TABLET PO SCH ×2 (09:19→20:14)
[2021-07-08] MEDS: AMLODIPINE 5 MG TABLET PO SCH (09:26)
--- NOTE | 2021-07-08 09:30 | NUR ---
SEEN BY HOSPITALIST AND DR CEJA, SEE NOTES
[2021-07-08] MEDS: NICOTINE 14 MG/24HR PATCH TD SCH (09:37)
[2021-07-08 11:45] VITALS: BP 146/93
--- NOTE | 2021-07-08 12:00 | NUR ---
NO ACUTE CHANGE FROM AM ASSESSMENT
[2021-07-08] MEDS: INSULIN REGULAR, HUMAN 300 UNIT/3 ML VIAL SQ PRN ×2 (12:24→16:49)
[2021-07-08] MEDS: MAGNESIUM HYDROXIDE 30 ML LIQUID UDC PO SCH (12:38)
[2021-07-08 16:00] VITALS: BP 139/80
[2021-07-08] MEDS: MONTELUKAST SODIUM 10 MG TABLET PO SCH (17:17)
--- NOTE | 2021-07-08 18:06 | NUR ---
CONTINUE PLAN OF CARE WITH IV ANTIBIOTIC, ANXIETY MEDS PRN WITH GOOD RELIEF, SR ON MONITOR
--- NOTE | 2021-07-08 19:30 | NUR ---
Noted patient on room air. Educated the patient on the importance of O2. Patient stated understanding but still refused O2 via NC. SpO2>92%. Will continue to monitor. Nurse aware
--- NOTE | 2021-07-08 19:30 | NUR ---
Patient refused treatment, stated that she wanted ativan first. RN aware. No SOB noted
--- NOTE | 2021-07-08 19:45 | NUR ---
ROUNDS MADE PATIENT AWAKE,ALERT ASKING FOR HER ATIVAN INFORMED THAT THE DAY RN JUST GAVE IT TO HER AND IKTS NOT DUE YEY.
[2021-07-08] MEDS: methylPREDNISolone SOD SUCC 125 MG/2 ML VIAL IV SCH (20:13)
[2021-07-08] MEDS: LINEZOLID 600 MG TABLET PO SCH (20:14)
--- NOTE | 2021-07-08 20:15 | NUR ---
PATIENT ASKED FOR ATIVAN INFORMED THAT ATIVAN NOT DUE YET ,GIVEN TYLENOL PRN INSTEAD WHILE WAITING FOR ATIVAN .
[2021-07-08 20:21] VITALS: BP 157/62
--- NOTE | 2021-07-08 20:30 | NUR ---
RESPIRATORY OFFERED BREATHING TREATMENT PATIENT REFUSED .
--- NOTE | 2021-07-08 21:13 | NUR ---
FINGERSTICK DONE 146 MG/DL GIVEN ISS SEE EMAR.
[2021-07-08] MEDS: INSULIN REGULAR, HUMAN 300 UNITS/3 ML VIAL SQ PRN (21:19)
--- NOTE | 2021-07-08 21:30 | NUR ---
PATIENT ASKED FOR SNACK GIVEN HAM SANDWICH AND APPLEJUICE . MINIMAL ASSIST ABLE TO FEED SELF .
--- NOTE | 2021-07-08 22:30 | NUR ---
KATIE AMBULATED TO THE BATHROOM ,SHE WAS CRYING AND SEEMS UPSET SHE SAID THEY REMOVED HER F/C AND NOW SHES INCONTINENT OF URINE . THE FLOOR GOT WET AND HER SOCKS GOT WET AND HER GOWN WAS WET WITH URINE .WITH CHEMICAL INSPECTOR HELP CHANGED SOILED LINENS AND GOWN ,REASSURED KATIE THAT EVERYTHING WILL BE FINE AND WE WILL CHANGED ALL THE WET GOWN EVEN HER SOCKS , ESCORTED BACK TO BED .CALL LIGHT PLACED WITH IN REACH AND ADVISED TO CALL FOR HELP.
--- NOTE | 2021-07-08 22:56 | NUR ---
GIVEN ATIVAN PRN PER PATIENT REQUEST ,ADVISED TO CALL FOR HELP AND TO CALL FOR ASSISTANCE GOING TO THE BATHROOM .
[2021-07-09] VITALS: BP 152/82
[2021-07-09] MEDS: ALBUTEROL SULFATE 2.5 MG/3 ML NEBU NEB SCH ×4 (01:30→19:30)
[2021-07-09] MEDS: IPRATROPIUM BROMIDE 0.5 MG/2.5 ML NEBU NEB SCH ×4 (01:30→19:30)
--- NOTE | 2021-07-09 02:00 | NUR ---
SLEEPING IN BED .NO RESPIRATORY DISTRESS NOTED .ABLE TO TURNED FROM SIDE TO SIDE .
[2021-07-09 02:06] LABS: A/G RATIO 0.6 (0.7-1.7); ALBUMIN 2.3 g/dL (2.9-4.4); ALPHA-1-GLOBULIN 0.4 g/dL (0.0-0.4); ALPHA-2-GLOBULIN 1.1 g/dL (0.4-1.0); BETA GLOBULIN 1.3 g/dL (0.7-1.3); GAMMA GLOBULIN 1.2 g/dL (0.4-1.8); M-SPIKE Not Observed g/dL (Not Observed)
[2021-07-09] MEDS: ACETAMINOPHEN 325 MG TABLET PO PRN (03:34)
[2021-07-09 04:00] VITALS: BP 153/70
--- NOTE | 2021-07-09 04:00 | NUR ---
BINDER CHAINSTITCH AT B/S FOR AM LABS .
[2021-07-09] MEDS: PANTOPRAZOLE SODIUM 40 MG TABLET.DR PO SCH (06:13)
--- NOTE | 2021-07-09 06:15 | NUR ---
FINGERSTICK DONE 177 MG/DL ,WILL ENDORSED TO DAY SHIFT.
[2021-07-09] MEDS: BLOOD SUGAR DIAGNOSTIC 1 EACH STRIP VI SCH ×4 (06:40→20:51)
[2021-07-09 06:45] LABS: MAGNESIUM 2.5 mg/dL (1.8-2.4)
[2021-07-09 08:02] LABS: HEMATOCRIT 36.6 % (31.2-41.9); MEAN CORPUSCULAR HEMOGLOBIN 25.6 uug (24.7-32.8); PLATELET COUNT (AUTO) 295 K/uL (179-408)
[2021-07-09 08:06] LABS: CREATININE 1.5 mg/dL (0.6-1.3); POTASSIUM 5.3 mmol/L (3.5-5.1)
[2021-07-09 08:26] LABS: BAND % (MANUAL) 2 % (0-10); LYMPHOCYTES % (MANUAL) 9 % (20-40); MONOCYTES % (MANUAL) 3 % (2-10); NEUTROPHILS % (MANUAL) 86 % (42-75)
[2021-07-09] MEDS: CHOLECALCIFEROL 1,000 UNIT TABLET PO SCH (08:51)
[2021-07-09] MEDS: LINEZOLID 600 MG TABLET PO SCH ×2 (08:52→21:42)
[2021-07-09] MEDS: NICOTINE 14 MG/24HR PATCH TD SCH (08:52)
[2021-07-09] MEDS: methylPREDNISolone SOD SUCC 125 MG/2 ML VIAL IV SCH (08:52)
[2021-07-09] MEDS: ALLOPURINOL 300 MG TABLET PO SCH (08:53)
[2021-07-09] MEDS: AMLODIPINE 5 MG TABLET PO SCH ×2 (09:05→09:07)
[2021-07-09] MEDS: APIXABAN 5 MG TABLET PO SCH ×2 (09:08→21:43)
[2021-07-09] MEDS: INSULIN REGULAR, HUMAN 300 UNIT/3 ML VIAL SQ PRN ×3 (09:15→16:26)
[2021-07-09 12:00] VITALS: BP 149/84
[2021-07-09] MEDS: MAGNESIUM HYDROXIDE 30 ML LIQUID UDC PO SCH (12:33)
[2021-07-09] MEDS: LORAZEPAM 2 MG/1 ML VIAL IV PRN ×2 (15:30→21:37)
[2021-07-09 16:30] VITALS: BP 133/65
[2021-07-09] MEDS: MONTELUKAST SODIUM 10 MG TABLET PO SCH (17:14)
[2021-07-09] MEDS: levoFLOXacin 750MG/D5W 150 ML IV SCH (20:30)
[2021-07-09 20:39] VITALS: BP 156/70
[2021-07-09] MEDS ORDERED: methylPREDNISolone SOD SUCC 125 MG/2 ML VIAL IV SCH (21:00)
[2021-07-09] MEDS: methylPREDNISolone SOD SUCC 40 MG/ML VIAL IV SCH (21:33)
[2021-07-09] MEDS: INSULIN REGULAR, HUMAN 300 UNITS/3 ML VIAL SQ PRN (21:47)
[2021-07-10] MEDS: IPRATROPIUM BROMIDE 0.5 MG/2.5 ML NEBU NEB SCH ×4 (00:30→19:48)
[2021-07-10] MEDS: ALBUTEROL SULFATE 2.5 MG/3 ML NEBU NEB SCH ×4 (00:30→19:48)
[2021-07-10 04:00] VITALS: BP 169/84
--- NOTE | 2021-07-10 05:38 | NUR ---
Received to care, lying in bed, call light in reach, needy and med seeking. PRN Ativan was given at 2136. She was restless much of night. She finally went to sleep around 0230. No distress, noted.
[2021-07-10] MEDS: PANTOPRAZOLE SODIUM 40 MG TABLET.DR PO SCH (06:54)
[2021-07-10] MEDS: BLOOD SUGAR DIAGNOSTIC 1 EACH STRIP VI SCH ×4 (06:54→21:21)
[2021-07-10 07:31] LABS: HEMATOCRIT 37.3 % (31.2-41.9); PLATELET COUNT (AUTO) 321 K/uL (179-408)
[2021-07-10 07:52] LABS: CREATININE 1.5 mg/dL (0.6-1.3); MAGNESIUM 2.3 mg/dL (1.8-2.4); PHOSPHOROUS 3.8 mg/dL (2.5-4.9); POTASSIUM 5.5 mmol/L (3.5-5.1)
[2021-07-10] MEDS: ALLOPURINOL 300 MG TABLET PO SCH (08:23)
[2021-07-10] MEDS: NICOTINE 14 MG/24HR PATCH TD SCH (08:23)
[2021-07-10] MEDS: CHOLECALCIFEROL 1,000 UNIT TABLET PO SCH (08:23)
[2021-07-10] MEDS: methylPREDNISolone SOD SUCC 40 MG/ML VIAL IV SCH ×2 (08:23→21:04)
[2021-07-10] MEDS: LINEZOLID 600 MG TABLET PO SCH ×2 (08:24→21:05)
[2021-07-10] MEDS: AMLODIPINE 5 MG TABLET PO SCH (08:27)
[2021-07-10] MEDS: APIXABAN 5 MG TABLET PO SCH ×2 (08:27→21:10)
[2021-07-10] MEDS: INSULIN REGULAR, HUMAN 300 UNIT/3 ML VIAL SQ PRN ×4 (08:28→21:24)
[2021-07-10] MEDS: LORAZEPAM 2 MG/1 ML VIAL IV PRN ×3 (08:38→21:14)
[2021-07-10 10:20] LABS: BAND % (MANUAL) 7 % (0-10); LYMPHOCYTES % (MANUAL) 17 % (20-40); MONOCYTES % (MANUAL) 3 % (2-10); NEUTROPHILS % (MANUAL) 73 % (42-75)
[2021-07-10] MEDS: MAGNESIUM HYDROXIDE 30 ML LIQUID UDC PO SCH (11:49)
[2021-07-10 12:29] VITALS: BP 160/76
[2021-07-10 16:30] VITALS: BP 168/84
[2021-07-10] MEDS: MONTELUKAST SODIUM 10 MG TABLET PO SCH (17:08)
[2021-07-10 17:40] LABS: *BILIRUBIN,URIN NEGATIVE (NEGATIVE); *BLOOD, URINE 3+ (NEGATIVE); *CLARITY,URINE SLIGHTLY CLOUDY (CLEAR); *COLOR,URINE Brown (YELLOW); *KETONES,URINE NEGATIVE (NEGATIVE); *UROBILINOGEN,URINE 0.2 E.U./dl (NORMAL); LEUKOCYTE ESTERASE ,URINE NEGATIVE (NEGATIVE); NITRITE, URINE NEGATIVE (NEGATIVE); UGLUCOSE NEGATIVE (NEGATIVE)
--- NOTE | 2021-07-10 18:27 | NUR ---
Patient tolerated care well today despite complaints of wanting to go home. Patient reminded numerous times about the need to stay in hospital due to patient's diagnosis and potential problems that may occur if patient leaves. Ativan given to patient Q6H PRN to help ease patient's anxiety. Patient's IV site intact and patent. Bed left in lowest position with call light within reach. Comfort measures provided. Will endorse information to PM nurse
[2021-07-10] MEDS ORDERED: QUETIAPINE FUMARATE 25 MG TABLET PO ONE (19:00)
--- NOTE | 2021-07-10 19:00 | NUR ---
Received patient on bed, alert, No complaint of pain. No shortness of breath.
[2021-07-10 20:06] VITALS: BP 148/65
--- NOTE | 2021-07-10 20:30 | NUR ---
Patient crying and seemed to be depressed. Reassurance of safety provided.
[2021-07-10] MEDS: ACETAMINOPHEN 325 MG TABLET PO PRN (21:09)
--- NOTE | 2021-07-10 21:14 | NUR ---
Ativan 2mg IV given. Patient calm down and sleeping at this time.
[2021-07-10 23:09] LABS: BACTERIA,URINE NONE SEEN /HPF (NONE SEEN); RBC,URINE 80-100 /HPF (0-3); SQUAMOUS EPITHELIAL CELL,UR NONE SEEN /HPF (NONE SEEN); WBC,URINE 0-3 /HPF (0-3)
[2021-07-11] MEDS: ALBUTEROL SULFATE 2.5 MG/3 ML NEBU NEB SCH ×4 (00:36→23:14)
[2021-07-11] MEDS: IPRATROPIUM BROMIDE 0.5 MG/2.5 ML NEBU NEB SCH ×4 (00:36→20:40)
[2021-07-11 04:06] VITALS: BP 145/60
--- NOTE | 2021-07-11 05:48 | NUR ---
Patient slept well, No complaint of shortness of breath, compliant with the medications. Patient observed in calm behavior, in fair condition. Will continue to monitor.
[2021-07-11 06:20] LABS: MEAN CORPUSCULAR HEMOGLOBIN 25.2 uug (24.7-32.8); MEAN CORPUSCULAR VOLUME 79.2 fL (75.5-95.3); PLATELET COUNT (AUTO) 328 K/uL (179-408)
[2021-07-11] MEDS: PANTOPRAZOLE SODIUM 40 MG TABLET.DR PO SCH (06:25)
[2021-07-11 06:30] LABS: CREATININE 1.2 mg/dL (0.6-1.3); MAGNESIUM 2.2 mg/dL (1.8-2.4); PHOSPHOROUS 4.3 mg/dL (2.5-4.9); POTASSIUM 4.8 mmol/L (3.5-5.1)
[2021-07-11] MEDS: BLOOD SUGAR DIAGNOSTIC 1 EACH STRIP VI SCH ×4 (06:44→21:23)
[2021-07-11 07:44] LABS: BAND % (MANUAL) 9 % (0-10); LYMPHOCYTES % (MANUAL) 18 % (20-40); MONOCYTES % (MANUAL) 3 % (2-10); MYELOCYTES % 1 % (0-0); NEUTROPHILS % (MANUAL) 69 % (42-75)
[2021-07-11] MEDS: CHOLECALCIFEROL 1,000 UNIT TABLET PO SCH (09:54)
[2021-07-11] MEDS: methylPREDNISolone SOD SUCC 40 MG/ML VIAL IV SCH ×2 (09:56→21:12)
[2021-07-11] MEDS: LINEZOLID 600 MG TABLET PO SCH ×2 (09:56→21:27)
[2021-07-11] MEDS: ALLOPURINOL 300 MG TABLET PO SCH (09:56)
[2021-07-11] MEDS: AMLODIPINE 5 MG TABLET PO SCH (09:56)
[2021-07-11] MEDS: NICOTINE 14 MG/24HR PATCH TD SCH (09:56)
[2021-07-11] MEDS: APIXABAN 5 MG TABLET PO SCH ×2 (09:57→21:23)
[2021-07-11] MEDS ORDERED: levoFLOXacin 750MG/D5W 150 ML IV SCH (11:00)
[2021-07-11 12:16] VITALS: BP 140/69
[2021-07-11] MEDS: levoFLOXacin 750MG/D5W 150 ML IV SCH (12:33)
[2021-07-11] MEDS: MAGNESIUM HYDROXIDE 30 ML LIQUID UDC PO SCH (12:36)
[2021-07-11] MEDS: LORAZEPAM 2 MG/1 ML VIAL IV PRN ×2 (13:24→21:12)
[2021-07-11] MEDS: TAMSULOSIN HCL 0.4 MG CAP.SR.24H PO SCH ×2 (16:11→21:12)
[2021-07-11 16:48] VITALS: BP 142/70
[2021-07-11] MEDS: MONTELUKAST SODIUM 10 MG TABLET PO SCH (17:18)
--- NOTE | 2021-07-11 19:00 | NUR ---
Received patient on bed, awake, alert, no complaint of pain at this time, in calm behavior. No shortness of breath noted.
[2021-07-11 20:38] VITALS: BP 170/83
--- NOTE | 2021-07-11 21:00 | NUR ---
Patient is crying and pacing in her room and wants to go home, Ativan 2mg IV given, offered foods and drinks, able to ate well. Patient calm down after 30 minutes
[2021-07-11] MEDS: ACETAMINOPHEN 325 MG TABLET PO PRN (21:07)
[2021-07-11] MEDS: INSULIN REGULAR, HUMAN 300 UNIT/3 ML VIAL SQ PRN (21:24)
--- NOTE | 2021-07-11 22:00 | NUR ---
Patient stated she still feeling anxious and wants to sleep tonight. Patient requested for Seroquel. Allison Escalante NP notified and ordered Seroquel 25mg PO once only.
[2021-07-11] MEDS ORDERED: QUETIAPINE FUMARATE 25 MG TABLET PO ONE (22:15)
[2021-07-11 22:30] VITALS: BP 149/86
[2021-07-12] MEDS: IPRATROPIUM BROMIDE 0.5 MG/2.5 ML NEBU NEB SCH ×4 (02:30→20:43)
[2021-07-12] MEDS: ALBUTEROL SULFATE 2.5 MG/3 ML NEBU NEB SCH ×4 (02:30→20:43)
[2021-07-12 04:38] VITALS: BP 159/63
--- NOTE | 2021-07-12 05:56 | NUR ---
Patient slept well, up on bed once ambulated to the bathroom, snacks given as requested.
--- NOTE | 2021-07-12 05:59 | NUR ---
Patient in calm behavior, patient in fair condition. Will continue to monitor.
[2021-07-12] MEDS: PANTOPRAZOLE SODIUM 40 MG TABLET.DR PO SCH (06:21)
[2021-07-12] MEDS: AMLODIPINE 5 MG TABLET PO SCH (06:21)
[2021-07-12] MEDS: BLOOD SUGAR DIAGNOSTIC 1 EACH STRIP VI SCH ×4 (06:28→21:04)
[2021-07-12 06:37] LABS: HEMATOCRIT 36.5 % (31.2-41.9); MEAN CORPUSCULAR HEMOGLOBIN 25.3 uug (24.7-32.8); MEAN CORPUSCULAR VOLUME 78.6 fL (75.5-95.3); PLATELET COUNT (AUTO) 317 K/uL (179-408)
[2021-07-12 06:57] LABS: CREATININE 1.2 mg/dL (0.6-1.3); MAGNESIUM 2.2 mg/dL (1.8-2.4); PHOSPHOROUS 3.9 mg/dL (2.5-4.9); POTASSIUM 4.7 mmol/L (3.5-5.1)
[2021-07-12] MEDS: methylPREDNISolone SOD SUCC 40 MG/ML VIAL IV SCH ×2 (08:52→21:08)
[2021-07-12] MEDS: CHOLECALCIFEROL 1,000 UNIT TABLET PO SCH (08:53)
[2021-07-12] MEDS: ALLOPURINOL 300 MG TABLET PO SCH (08:54)
[2021-07-12] MEDS: APIXABAN 5 MG TABLET PO SCH ×2 (08:55→20:57)
[2021-07-12] MEDS: INSULIN REGULAR, HUMAN 300 UNIT/3 ML VIAL SQ PRN ×3 (08:56→16:52)
[2021-07-12] MEDS: NICOTINE 14 MG/24HR PATCH TD SCH (09:02)
[2021-07-12] MEDS: LINEZOLID 600 MG TABLET PO SCH ×2 (09:04→20:49)
[2021-07-12 10:06] LABS: HEPATITIS B SURFACE AG Negative (Negative)
[2021-07-12 11:47] VITALS: BP 141/68
[2021-07-12] MEDS: ACETAMINOPHEN 325 MG TABLET PO PRN (11:55)
[2021-07-12] MEDS: MAGNESIUM HYDROXIDE 30 ML LIQUID UDC PO SCH (11:59)
[2021-07-12] MEDS: levoFLOXacin 750MG/D5W 150 ML IV SCH (12:05)
[2021-07-12] MEDS: LORAZEPAM 2 MG/1 ML VIAL IV PRN ×2 (13:38→20:50)
[2021-07-12 16:04] VITALS: BP 154/86
[2021-07-12] MEDS: MONTELUKAST SODIUM 10 MG TABLET PO SCH (17:17)
[2021-07-12 20:32] VITALS: BP 167/80
[2021-07-12] MEDS: TAMSULOSIN HCL 0.4 MG CAP.SR.24H PO SCH (20:49)
[2021-07-13] MEDS: ALBUTEROL SULFATE 2.5 MG/3 ML NEBU NEB SCH ×2 (01:30→07:36)
[2021-07-13] MEDS: IPRATROPIUM BROMIDE 0.5 MG/2.5 ML NEBU NEB SCH ×2 (01:30→07:36)
[2021-07-13] MEDS: LORAZEPAM 2 MG/1 ML VIAL IV PRN (04:17)
[2021-07-13 04:25] VITALS: BP 150/91
[2021-07-13] MEDS: PANTOPRAZOLE SODIUM 40 MG TABLET.DR PO SCH (06:27)
[2021-07-13] MEDS: BLOOD SUGAR DIAGNOSTIC 1 EACH STRIP VI SCH ×2 (06:32→11:48)
[2021-07-13 07:05] LABS: HEMATOCRIT 41.4 % (31.2-41.9); MEAN CORPUSCULAR HEMOGLOBIN 25.8 uug (24.7-32.8); MEAN CORPUSCULAR VOLUME 80.1 fL (75.5-95.3); PLATELET COUNT (AUTO) 374 K/uL (179-408)
[2021-07-13 07:09] LABS: CREATININE 1.2 mg/dL (0.6-1.3); POTASSIUM 4.9 mmol/L (3.5-5.1)
--- NOTE | 2021-07-13 07:37 | NUR ---
AO x4. On room air saturating at 96-97%. Patient slept through the night. Pt was anxious and requested Ativan IV. Effective and was able to sleep. Snacks given as requested. No signs of acute distress. Denies SOB. Call lights within reach. Safety measures maintained. All needs have been met. Will endorse to am shift
[2021-07-13] MEDS: AMLODIPINE 5 MG TABLET PO SCH (09:13)
[2021-07-13] MEDS: CHOLECALCIFEROL 1,000 UNIT TABLET PO SCH (09:13)
[2021-07-13] MEDS: ALLOPURINOL 300 MG TABLET PO SCH (09:13)
[2021-07-13] MEDS: methylPREDNISolone SOD SUCC 40 MG/ML VIAL IV SCH (09:14)
[2021-07-13] MEDS: APIXABAN 5 MG TABLET PO SCH (09:14)
[2021-07-13] MEDS: LINEZOLID 600 MG TABLET PO SCH (09:15)
[2021-07-13] MEDS: NICOTINE 14 MG/24HR PATCH TD SCH (09:16)
[2021-07-13] MEDS ORDERED: LINE600T15 PO (09:31)
[2021-07-13] MEDS ORDERED: METH4TAB3 PO (09:31)
[2021-07-13] MEDS ORDERED: TAMS-3 PO (09:31)
[2021-07-13 11:03] VITALS: BP 158/85
--- NOTE | 2021-07-13 11:30 | NUR ---
patient requesting to be discharged. explained to patient there is no discharge order at this time. Spoke to Allison Keller NP per Allison there is a still a hold for placement. explained to patient per patient " i dont want to be placed, i want to go home" relayed message to Allison BERNAL.
[2021-07-13] MEDS: MAGNESIUM HYDROXIDE 30 ML LIQUID UDC PO SCH (11:43)
--- NOTE | 2021-07-13 12:30 | NUR ---
midline removed minimal bleeding noted, pressure applied, patient with v/s wnl at this time, assisted downstairs.
--- NOTE | 2021-07-13 12:30 | NUR ---
patient insisting on leaving, explained risk and benefits of leaving AMA, patient states "its ok, i want to leave, i will sign the form" paperwork given to patient, patient signed all paperwork. GABE payan
[2021-07-13 22:47] LABS: BAND % (MANUAL) 11 % (0-10); LYMPHOCYTES % (MANUAL) 17 % (20-40); METAMYELOCYTES % 6 % (0-1); MONOCYTES % (MANUAL) 3 % (2-10); MYELOCYTES % 1 % (0-0); NEUTROPHILS % (MANUAL) 62 % (42-75)
== END 2021-07-13 12:30 | disposition left against medical advice (07) | DRG 720 ==
LOC: ER 17:40 → TRANSITION 21:30 → TELE-TD3 07-06 13:40 → TELE3 07-07 14:49 → MEDSURG3 07-09 10:35
PROVIDERS: ADMIT Nurse Practitioner Acute Care; ATTEND Nurse Practitioner Acute Care
PROC: B546ZZA Ultrasonography of Right Subclavian Vein, Guidance (ICD-10-PCS; principal; 2021-07-04)
PROC: 5A09357 Assistance with Respiratory Ventilation, Less than 24 Consecutive Hours, Continuous Positive Airway Pressure (ICD-10-PCS; principal; 2021-07-04)
PROC: 05H533Z Insertion of Infusion Device into Right Subclavian Vein, Percutaneous Approach (ICD-10-PCS; principal; 2021-07-04)
PROC: 0JBN0ZZ Excision of Right Lower Leg Subcutaneous Tissue and Fascia, Open Approach (ICD-10-PCS; 2021-07-08)
PROC: B546ZZA Ultrasonography of Right Subclavian Vein, Guidance (ICD-10-PCS; 2021-07-11)
PROC: 05H533Z Insertion of Infusion Device into Right Subclavian Vein, Percutaneous Approach (ICD-10-PCS; 2021-07-11)
DX: A41.9 Sepsis, unspecified organism (principal); J96.01 Acute respiratory failure with hypoxia; N17.0 Acute kidney failure with tubular necrosis; G92.8 Other toxic encephalopathy; J15.9 Unspecified bacterial pneumonia; E44.0 Moderate protein-calorie malnutrition; E11.22 Type 2 diabetes mellitus with diabetic chronic kidney disease; D47.9 Neoplasm of uncertain behavior of lymphoid, hematopoietic and related tissue, unspecified; E88.09 Other disorders of plasma-protein metabolism, not elsewhere classified; Z20.822 Contact with and (suspected) exposure to COVID-19; E66.01 Morbid (severe) obesity due to excess calories; F17.210 Nicotine dependence, cigarettes, uncomplicated; F32.A Depression, unspecified; I13.10 Hypertensive heart and chronic kidney disease without heart failure, with stage 1 through stage 4 chronic kidney disease, or unspecified chronic kidney disease; J45.901 Unspecified asthma with (acute) exacerbation; L03.115 Cellulitis of right lower limb; Z86.16 Personal history of COVID-19; Z87.440 Personal history of urinary (tract) infections; Z88.0 Allergy status to penicillin; N18.30 Chronic kidney disease, stage 3 unspecified; M20.42 Other hammer toe(s) (acquired), left foot; M20.41 Other hammer toe(s) (acquired), right foot; E06.3 Autoimmune thyroiditis; Z91.14 Patient's other noncompliance with medication regimen; R74.01 Elevation of levels of liver transaminase levels; S81.801A Unspecified open wound, right lower leg, initial encounter; X58.XXXA Exposure to other specified factors, initial encounter; Y93.9 Activity, unspecified; Y92.89 Other specified places as the place of occurrence of the external cause; Z68.42 Body mass index [BMI] 45.0-49.9, adult; Z88.1 Allergy status to other antibiotic agents; M10.9 Gout, unspecified; F10.239 Alcohol dependence with withdrawal, unspecified; F15.23 Other stimulant dependence with withdrawal; B95.0 Streptococcus, group A, as the cause of diseases classified elsewhere
CPT/HCPCS: 36415; 36600; 70030-TC; 71045; 71250; 71260; 82784; 83605; 83615; 83690; 83735; 84100; 84155; 84165; 84443; 84484; 85025; 85610; 85730; 86140; 86334; 86704; 86706; 86803; 87040; 87077; 87086; 87340; 87806; 93307; 94640; 94660; 94664; 97161; A4663; A6209; C9113; G0378; J1815; J1956; J2020; J2060; J2543; J2920; J2930; J3260; J3590; J7040; J8499; Q9967; U0003

== ENCOUNTER 2022-02-27 19:25 | Inpatient (IN) | payer OTHER ==
[~2022-02-27] VITALS: Ht 165.1 cm; Wt 123.8 kg
[~2022-02-27 19:25] MED LIST changes: +ALLO300T2 PO; +ATOR20TA PO; +CLID1CAP PO; +DIPH50CA38 PO; -DOXY100T2 PO; +ESCI20TA44 PO; +FLUT1DIS29 IH; +FURO40TA5 PO; -LEVO250T59 PO; +LINE600T15 PO; +METF-440 PO; +METH4TAB3 PO; +MINO2.5T PO; +MONT10TA33 PO; +MUPI22OI2; +MV-M1TAB18 PO; +TAMS-3 PO
[2022-02-27] MEDS ORDERED: ACETAMINOPHEN ES 500 MG TABLET ONE (22:12)
[2022-02-27] MEDS ORDERED: predniSONE 50 MG TABLET ONE (22:12)
[2022-02-27] MEDS ORDERED: predniSONE 10 MG TABLET ONE (22:13)
[2022-02-27] MEDS ORDERED: CLINDAMYCIN HCL 300 MG CAPSULE ONE (22:14)
[2022-02-27] MEDS ORDERED: predniSONE 10 MG TABLET PO ONE (22:15)
[2022-02-27] MEDS ORDERED: CLINDAMYCIN HCL 150 MG CAPSULE PO ONE (22:15)
[2022-02-27] MEDS ORDERED: IPRATROPIUM BROMIDE 0.5 MG/2.5 ML NEBU NEB ONE (22:15)
[2022-02-27] MEDS ORDERED: ACETAMINOPHEN ES 500 MG TABLET PO ONE (22:15)
[2022-02-27] MEDS ORDERED: ALBUTEROL SULFATE 2.5 MG/3 ML NEBU NEB ONE ×3 (22:15→23:00)
[2022-02-27] MEDS ORDERED: IPRATROPIUM BROMIDE 0.5 MG/2.5 ML NEBU ONE (22:16)
[2022-02-27] MEDS ORDERED: ALBUTEROL SULFATE 2.5 MG/3 ML NEBU ONE ×2 (22:16→22:53)
[2022-02-27 22:28] LABS: HEMATOCRIT 38.1 % (31.2-41.9); MEAN CORPUSCULAR HEMOGLOBIN 26.5 uug (24.7-32.8); MEAN CORPUSCULAR VOLUME 81.9 fL (75.5-95.3); PLATELET COUNT (AUTO) 269 K/uL (179-408)
[2022-02-27 22:34] LABS: CREATININE 1.4 mg/dL (0.6-1.3); POTASSIUM 4.3 mmol/L (3.5-5.1)
[2022-02-27] MEDS ORDERED: PRED20TA PO (22:39)
[2022-02-27] MEDS ORDERED: CLIN300C3 PO (22:39)
[2022-02-28] MEDS ORDERED: LOSA50TA39 PO (00:50)
[2022-02-28] MEDS ORDERED: LORA10TA7 PO (00:50)
[2022-02-28] MEDS ORDERED: METO-356 PO (00:50)
[2022-02-28] MEDS ORDERED: LEVO200T9 PO (00:50)
[2022-02-28 02:34] LABS: *BILIRUBIN,URIN NEGATIVE (NEGATIVE); *BLOOD, URINE NEGATIVE (NEGATIVE); *CLARITY,URINE CLEAR (CLEAR); *COLOR,URINE YELLOW (YELLOW); *KETONES,URINE NEGATIVE (NEGATIVE); *UROBILINOGEN,URINE 0.2 E.U./dl (NORMAL); LEUKOCYTE ESTERASE ,URINE NEGATIVE (NEGATIVE); NITRITE, URINE NEGATIVE (NEGATIVE); UGLUCOSE NEGATIVE (NEGATIVE)
[2022-02-28] MEDS ORDERED: ASPIRIN 81 MG TAB.CHEW ONE (03:27)
[2022-02-28] MEDS ORDERED: ASPIRIN 81 MG TAB.CHEW PO ONE (03:30)
[2022-02-28] MEDS ORDERED: FURO40TA5 PO (10:37)
[2022-02-28] MEDS ORDERED: METF-440 PO (10:37)
[2022-02-28 10:40] VITALS: BP 145/70
[2022-02-28] MEDS ORDERED: DEXTROSE 50% 50 ML DISP.SYRIN IV PRN (11:00)
[2022-02-28] MEDS ORDERED: ACETAMINOPHEN 325 MG TABLET PO PRN (11:00)
[2022-02-28] MEDS ORDERED: MAGNESIUM HYDROXIDE 30 ML LIQUID UDC PO PRN (11:00)
[2022-02-28] MEDS ORDERED: ONDANSETRON 4 MG/2 ML VIAL IV PRN (11:00)
[2022-02-28] MEDS ORDERED: ENOXAPARIN SODIUM 40 MG/0.4 ML DISP.SYRIN SQ SCH (12:00)
[2022-02-28] MEDS ORDERED: LOSARTAN POTASSIUM 50 MG TABLET PO SCH (12:00)
[2022-02-28] MEDS: BLOOD SUGAR DIAGNOSTIC 1 EACH STRIP VI SCH ×3 (12:19→20:51)
[2022-02-28] MEDS: methylPREDNISolone SOD SUCC 125 MG/2 ML VIAL IV SCH ×2 (12:20→17:12)
[2022-02-28] MEDS: METOPROLOL SUCCINATE XL 25 MG TAB.SR.24H PO SCH (12:21)
[2022-02-28 16:00] VITALS: BP 140/68
[2022-02-28] MEDS: LOSARTAN POTASSIUM 50 MG TABLET PO SCH (17:11)
[2022-02-28] MEDS: FUROSEMIDE 40 MG TABLET PO SCH (17:12)
[2022-02-28] MEDS: METFORMIN HCL 500 MG TABLET PO SCH (17:12)
[2022-02-28] MEDS: INSULIN REGULAR, HUMAN 300 UNIT/3 ML VIAL SQ PRN ×2 (17:13→21:19)
[2022-02-28] MEDS: IPRATROPIUM BROMIDE 0.5 MG/2.5 ML NEBU NEB PRN (18:04)
[2022-02-28] MEDS: ALBUTEROL SULFATE 2.5 MG/3 ML NEBU NEB PRN (18:04)
[2022-02-28] MEDS ORDERED: levoFLOXacin 750MG/D5W 750 MG in PREMIXED 1 EACH IV SCH (18:30)
[2022-02-28 20:12] VITALS: BP 126/83
[2022-02-28] MEDS: ATORVASTATIN 20 MG TABLET PO SCH (20:51)
[2022-03-01] MEDS: methylPREDNISolone SOD SUCC 125 MG/2 ML VIAL IV SCH ×2 (00:05→06:15)
[2022-03-01 00:10] VITALS: BP 114/63
[2022-03-01] MEDS: ZOLPIDEM 5 MG TABLET PO PRN ×2 (00:15→20:43)
[2022-03-01 04:15] VITALS: BP 107/51
[2022-03-01] MEDS: PANTOPRAZOLE SODIUM 40 MG TABLET.DR PO SCH (06:54)
[2022-03-01] MEDS: BLOOD SUGAR DIAGNOSTIC 1 EACH STRIP VI SCH ×4 (06:55→20:35)
[2022-03-01 06:56] LABS: HEMATOCRIT 38.5 % (31.2-41.9); MEAN CORPUSCULAR HEMOGLOBIN 27.3 uug (24.7-32.8); MEAN CORPUSCULAR VOLUME 82.7 fL (75.5-95.3); PLATELET COUNT (AUTO) 283 K/uL (179-408)
[2022-03-01] MEDS ORDERED: LEVOTHYROXINE SODIUM 125 MCG TABLET PO SCH (07:00)
[2022-03-01 07:30] LABS: CARBON DIOXIDE 31 mmol/L (21-32); CHLORIDE 104 mmol/L (98-107); CHOLESTEROL 175 mg/dL (<200); CREATININE 1.5 mg/dL (0.6-1.3); GLUCOSE 161 mg/dL (74-106); HDL CHOLESTEROL 58 mg/dL (40-60); MAGNESIUM 1.8 mg/dL (1.8-2.4); PHOSPHOROUS 4.8 mg/dL (2.5-4.9); POTASSIUM 4.9 mmol/L (3.5-5.1); TRIGLYCERIDES 132 MG/DL (30-150); UREA NITROGEN, BLOOD 31 mg/dL (7-18)
[2022-03-01 08:15] LABS: THYROID STIMULATING HORMONE < 0.007 mIU/mL (0.358-3.740)
[2022-03-01] MEDS ORDERED: MONTELUKAST SODIUM 10 MG TABLET PO SCH (09:00)
[2022-03-01] MEDS: METFORMIN HCL 500 MG TABLET PO SCH ×2 (09:03→16:44)
[2022-03-01] MEDS: LOSARTAN POTASSIUM 50 MG TABLET PO SCH ×2 (09:03→16:44)
[2022-03-01] MEDS: FUROSEMIDE 40 MG TABLET PO SCH ×2 (09:04→16:44)
[2022-03-01] MEDS: METOPROLOL SUCCINATE XL 25 MG TAB.SR.24H PO SCH (09:05)
[2022-03-01] MEDS: ENOXAPARIN SODIUM 40 MG/0.4 ML DISP.SYRIN SQ SCH (09:06)
[2022-03-01] MEDS: INSULIN REGULAR, HUMAN 300 UNIT/3 ML VIAL SQ PRN ×4 (09:09→20:37)
[2022-03-01] MEDS: ALBUTEROL SULFATE 2.5 MG/3 ML NEBU NEB PRN ×3 (09:22→23:47)
[2022-03-01] MEDS: IPRATROPIUM BROMIDE 0.5 MG/2.5 ML NEBU NEB PRN ×3 (09:22→23:47)
[2022-03-01] MEDS: HYDROCODONE/APAP 5-325MG TABLET PO PRN ×2 (09:26→16:43)
[2022-03-01 12:00] VITALS: BP 140/59
[2022-03-01] MEDS: methylPREDNISolone SOD SUCC 40 MG/ML VIAL IV SCH ×2 (12:01→18:00)
[2022-03-01 16:00] VITALS: BP 132/60
[2022-03-01] MEDS: MONTELUKAST SODIUM 10 MG TABLET PO SCH (17:01)
[2022-03-01] MEDS: ATORVASTATIN 20 MG TABLET PO SCH (20:34)
[2022-03-01 20:52] VITALS: BP 105/37
[2022-03-01] MEDS: GUAIFENESIN/DEXTROMETHORPHAN 5 ML UDC PO PRN (22:35)
[2022-03-02 00:15] VITALS: BP 107/50
[2022-03-02] MEDS: methylPREDNISolone SOD SUCC 40 MG/ML VIAL IV SCH ×4 (00:15→17:22)
[2022-03-02] MEDS: GUAIFENESIN/DEXTROMETHORPHAN 5 ML UDC PO PRN (03:09)
[2022-03-02 06:09] VITALS: BP 109/60
[2022-03-02] MEDS: BLOOD SUGAR DIAGNOSTIC 1 EACH STRIP VI SCH ×3 (06:41→17:00)
[2022-03-02] MEDS: PANTOPRAZOLE SODIUM 40 MG TABLET.DR PO SCH (06:42)
[2022-03-02 07:26] LABS: CREATININE 1.7 mg/dL (0.6-1.3); POTASSIUM 4.2 mmol/L (3.5-5.1)
[2022-03-02] MEDS: IPRATROPIUM BROMIDE 0.5 MG/2.5 ML NEBU NEB PRN ×2 (07:35→13:17)
[2022-03-02] MEDS: ALBUTEROL SULFATE 2.5 MG/3 ML NEBU NEB PRN ×2 (07:35→13:17)
[2022-03-02 08:00] VITALS: BP 132/75
[2022-03-02] MEDS ORDERED: levoFLOXacin 750MG/D5W 750 MG in PREMIXED 1 EACH IV SCH ×2 (08:00→20:00)
[2022-03-02] MEDS: LOSARTAN POTASSIUM 50 MG TABLET PO SCH ×2 (09:00→16:21)
[2022-03-02] MEDS: METOPROLOL SUCCINATE XL 25 MG TAB.SR.24H PO SCH (09:00)
[2022-03-02] MEDS: METFORMIN HCL 500 MG TABLET PO SCH ×2 (09:01→16:10)
[2022-03-02] MEDS: FUROSEMIDE 40 MG TABLET PO SCH ×2 (09:01→16:10)
[2022-03-02] MEDS: ENOXAPARIN SODIUM 40 MG/0.4 ML DISP.SYRIN SQ SCH (09:56)
[2022-03-02 12:00] VITALS: BP 128/77
[2022-03-02 16:00] VITALS: BP 139/61
[2022-03-02 16:21] VITALS: BP 130/67
[2022-03-02] MEDS: MONTELUKAST SODIUM 10 MG TABLET PO SCH (17:22)
== END 2022-03-02 18:30 | disposition home or self-care (01) | DRG 141 ==
LOC: ER 20:02 → TELE3 02-28 10:05
DX: J45.901 Unspecified asthma with (acute) exacerbation (principal); J96.01 Acute respiratory failure with hypoxia; N17.0 Acute kidney failure with tubular necrosis; F32.A Depression, unspecified; Z20.822 Contact with and (suspected) exposure to COVID-19; N18.9 Chronic kidney disease, unspecified; Z86.16 Personal history of COVID-19; Z91.199 Patient's noncompliance with other medical treatment and regimen due to unspecified reason; Z79.890 Hormone replacement therapy; E05.90 Thyrotoxicosis, unspecified without thyrotoxic crisis or storm; E66.01 Morbid (severe) obesity due to excess calories; E06.3 Autoimmune thyroiditis; E78.5 Hyperlipidemia, unspecified; F17.210 Nicotine dependence, cigarettes, uncomplicated; J20.9 Acute bronchitis, unspecified; I13.0 Hypertensive heart and chronic kidney disease with heart failure and stage 1 through stage 4 chronic kidney disease, or unspecified chronic kidney disease; I50.9 Heart failure, unspecified; Z68.42 Body mass index [BMI] 45.0-49.9, adult; Z79.84 Long term (current) use of oral hypoglycemic drugs; E11.22 Type 2 diabetes mellitus with diabetic chronic kidney disease
CPT/HCPCS: 36415; 71045; 83735; 84100; 84443; 84484; 85025; 87400; 93005; 94640; A4663; A9150; G0378; J1650; J1815; J1956; J2920; J2930; J3590; J7512